=== PATIENT | male | born 1960 | race Caucasian/White ===

== ENCOUNTER 2020-06-15 17:57 | Emergency (ER) | payer OTHER ==
[~2020-06-15] VITALS: Ht 190.5 cm; Wt 154.2 kg
[~2020-06-15 17:57] MED LIST: GLUCOPHAGE500 MG PO; GLYBURIDE 5 MG T5 M1 PO; NABUMETONE 500500 M1 PO; NEURONTIN 300300 M1 PO; PERCOCET PO; PROAIR HFA8.5 GM INH; SIMVASTATIN40 MG PO
[2020-06-15] MEDS ORDERED: JARDIANCE25 MG PO (18:09)
[2020-06-15] MEDS ORDERED: TRULICITY0.75 MG/0. SUBQ (18:10)
[2020-06-15] MEDS ORDERED: GLIMEPIRIDE4 MG PO (18:10)
[2020-06-15 18:44] LABS: ABSOLUTE BASOPHILS 0.1 thou/uL (0.0-0.2); ABSOLUTE EOSINOPHILS 0.2 thou/uL (0.0-0.7); ABSOLUTE LYMPHOCYTES 1.6 thou/uL (0.8-5.3); ABSOLUTE MONOCYTES 0.7 thou/uL (0.0-1.2); ABSOLUTE NEUTROPHILS 5.5 thou/uL (1.6-8.1); BASOPHILS 0.9 %; EOSINOPHILS 2.4 %; HEMATOCRIT 44.4 % (42.0-52.0); HEMOGLOBIN 14.4 gm/dL (14.0-18.0); LYMPHOCYTES 20.3 %; MCH 27.2 pg (26.0-34.0); MCHC 32.4 g/dL (28.0-37.0); MCV 83.8 fL (80.0-100.0); MONOCYTES 8.1 %; MPV 8.4 fl. (7.2-11.1); NUCLEATED RBCS 0 /100WBC; PLATELET COUNT* 231 thou/uL (150-400); POLYS 68.3 %; RBC 5.29 mil/uL (4.50-6.00); RDW-CV 14.6 % (10.5-14.5); WBC 8.1 thou/uL (4.0-11.0)
[2020-06-15 18:53] LABS: CALCIUM 8.9 mg/dL (8.5-10.1); CREATININE 1.1 mg/dL (0.6-1.3); POTASSIUM 3.8 mmol/L (3.5-5.1)
[2020-06-15 18:56] LABS: APTT 27.2 Seconds (25.0-31.3); PROTIME 10.7 Seconds (9.20-11.50)
[2020-06-15 19:04] LABS: ALBUMIN 3.3 g/dL (3.4-5.0); MAGNESIUM 2.2 mg/dL (1.8-2.4); TOTAL BILIRUBIN 0.4 mg/dL (<0.1-1.0); TOTAL PROTEIN 7.3 g/dL (6.4-8.2)
[2020-06-15] MEDS ORDERED: NABUMETONE 750750 M1 PO (20:30)
[2020-06-15 20:50] VITALS: BP 115/82
--- NOTE | 2020-06-16 14:00 | EKG ---
[place] [address] ELECTROCARDIOGRAM REPORT Name: BETY MONTES V Room: [facility]#: [id number] Admission: 06/15/20 Attend Phys: Discharge: 06/15/20 Date of : 62 Date of Service: 06/15/20 180 Report #: [id number] THIS REPORT FOR: //name// 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
== END 2020-06-15 20:50 | disposition home or self-care (01) ==
LOC: M.ERS 17:57
PROVIDERS: Nurse Practitioner Family
DX: R07.89 Other chest pain (principal); E11.9 Type 2 diabetes mellitus without complications; E78.5 Hyperlipidemia, unspecified; E66.01 Morbid (severe) obesity due to excess calories; Z68.41 Body mass index [BMI] 40.0-44.9, adult